=== PATIENT | female | born 2000 | race Caucasian/White ===

== ENCOUNTER 2023-10-18 15:06 | Emergency (ER) | payer OTHER, SELFPAY ==
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
--- NOTE | ~2023-10-18 | XR_ITS ---
EXAMINATION: XR chest 1V portable DATE: 10/18/2023 17:27 INDICATION: Right scapular back pain. TECHNIQUE: A single frontal view of the chest was obtained. COMPARISON: None. FINDINGS: There is no pneumonia, pleural effusion, or pneumothorax. The heart size is normal. IMPRESSION: 1. No acute cardiopulmonary disease. Reviewed, dictated and finalized at location E. D ART INSTRUCTOR
[2023-10-18 15:08] VITALS: BP 146/90; PULSE 93; RESP 16; TEMP 37; O2SAT 100
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
[2023-10-18] MEDS: KETOROLAC 30 MG/ML VIAL (*BKC) IM (17:29)
[2023-10-18] MEDS: CYCLOBENZAPRINE HCL 10 MG TABLET PO (17:29)
[2023-10-18] MEDS: ACETAMINOPHEN 325 MG TABLET 650 MG PO (17:30)
== END 2023-10-18 18:13 | disposition home or self-care (01) ==
PROVIDERS: Emergency Provider Emergency Medicine; PCP Emergency Medicine
DX: S09.90XA Unspecified injury of head, initial encounter (principal); S19.9XXA Unspecified injury of neck, initial encounter; S29.9XXA Unspecified injury of thorax, initial encounter; V44.5XXA Car driver injured in collision with heavy transport vehicle or bus in traffic accident, initial encounter
CPT/HCPCS: 70450; 71045; 72125; 96372; 99284; A9270; J1885